=== PATIENT | male | born 1945 | race Caucasian/White ===

== ENCOUNTER 2022-02-26 09:09 | Outpatient (CLI) | payer MEDICARE, SELFPAY ==
--- NOTE | ~2022-02-26 | US_ITS ---
US abdomen complete EXAMINATION: US Abdomen Complete INDICATION: History of malignant neoplasm. PROCEDURE: Realtime High Resolution abdomen ultrasound. COMPARISON: No prior studies for comparison FINDINGS: There is a 4 mm gallbladder polyp. No gallstones, gallbladder wall thickening or pericholec ystic fluid. Common bile duct measures 4 mm. Liver echotexture within normal limits without focal mass. Pancreas within normal limits. Pancreati c tail is obscured by bowel gas. Spleen is unremarkeable. There are bilateral renal cysts, largest i n the left kidney measuring 6 cm. There is a right renal stone measuring 7 mm. No significant hydrone phrosis. Right kidney measures 10.5 cm. Left kidney measures 12 cm. Visualized aspects of the aorta and IVC are within normal limits. Portal vein is patent. No sonograph ic Luo's sign indicated by the technologist. IMPRESSION: 1: Gallbladder polyp measuring 4 mm. 2: Right nephrolithiasis measuring 7 mm. 3: Bilateral renal cysts. Reviewed, dictated and finalized at location A.
== END 2022-02-26 09:10 | disposition home or self-care (01) ==
PROVIDERS: PCP Family Medicine; Visit Provider Family Medicine
DX: R63.4 Abnormal weight loss (principal); F17.201 Nicotine dependence, unspecified, in remission; K82.4 Cholesterolosis of gallbladder; N20.0 Calculus of kidney; N28.1 Cyst of kidney, acquired; Z80.0 Family history of malignant neoplasm of digestive organs
CPT/HCPCS: 76700

== ENCOUNTER 2022-12-24 07:41 | Outpatient (CLI) | payer MEDICARE, SELFPAY ==
--- NOTE | ~2022-12-24 | US_ITS ---
EXAMINATION: US carotid duplex BI DATE: 12/24/2022 09:55 INDICATION: Bilateral carotid bruits TECHNIQUE: Grayscale, color Doppler, and pulsed Doppler images of the cervical carotid arteries were obtained. The degree of vessel stenosis is placed in one of the following categories: normal, <50%, 5 0-69%, >=70% but less than near-occlusion, near-occlusion, or total occlusion. Note that percent sten osis relative to normal distal artery lumen diameter is indirectly measured from velocity measurement s as described by Troy, et al. Radiology 2003; 229:340-346. Notes: Normal: Peak systolic velocity <125 centimeters/sec and no plaque <50%. Peak systolic velocity <125 ( EDV <40; ICA/CCA PSV ratio <2.0; used these factors only a tandem lesions or low cardiac output or co ntralateral disease) 50-69 %: PSV 125-230 (EDV 40-100; ratio 2-4) >= 70% but less than near occlusion: PSV greater than 230 (EDV > 100; ratio> 4.0) Near Occlusion: PSV that is variable; markedly narrowed lumen Occlusion: Absent flow on color/spectral Doppler and no lumen on zimmer scale. COMPARISON: None. FINDINGS: RIGHT: The right common carotid artery (CCA) peak systolic velocity (PSV) is 76 cm/s. The right internal car otid artery (ICA) PSV is 73 cm/s. The right ICA end-diastolic velocity (EDV) is 21 cm/s. The right IC A/CCA PSV ratio is 1.0. The external carotid artery (ECA) PSV is 71 cm/s. There is antegrade flow in the right vertebral artery. LEFT: The left CCA PSV is 83 cm/s. The left ICA PSV is 61 cm/s. The left ICA EDV is 19 cm/s. The left ICA/C CA PSV ratio is 0.7. The ECA PSV is 75 cm/s. There is antegrade flow in the left vertebral artery. IMPRESSION: 1. Less than 50% stenosis in the right internal carotid artery by sonographic criteria. 2. Less than 50% stenosis in the left internal carotid artery by sonographic criteria. Reviewed, dictated and finalized at location A. IMPRESSION: 1. Less than 50% stenosis in the right internal carotid artery by sonographic gracie luevano. 2. Less than 50% stenosis in the left internal carotid artery by sonographic lam camarena.
--- NOTE | 2022-12-24 07:49 | ECHO_ITS ---
Patient Info Name: Richard Christensen Age: 77 years : 1945 Gender: Male Ht: 70 in Wt: 150 lbs BSA: 1.83 m2 HR: 56 bpm BP: 171 / 72 mmHg Heart Rhythm: Sinus Rhythm Technical Quality: Fair Exam Date: 12/24/2022 7:55 AM Exam Location: [facility] Patient Status: Outpatient Admit Date: 12/24/2022 Staff Ordering Physician: Alessandra Barron MD Blending Tank Tender: Trang Graham RDCS Attending Provider: Alessandra Barron MD Referring Physician: Anderson PIERCE; Exam Type: CA echo doppler color flow Study Info Indications R01.1 - Cardiac murmur, unspecified Complete two-dimensional, color flow and Doppler transthoracic echocardiogram is performed. Summary 1. Complete two-dimensional, color flow and Doppler transthoracic echocardiogram is performed. 2. Left ventricular chamber dimension is normal. 3. Ventricular septum is sigmoid shaped. No LVOT obstruction. 4. Left ventricular systolic function is normal, estimated at 65-70%. 5. The left ventricular diastolic function is grade I diastolic dysfunction. 6. E/e' 9 is minimally elevated. 7. There is severe aortic valve sclerosis. 8. There is mild aortic valve stenosis with a peak velocity of 252 cm/s, mean gradient of 14 mmHg, and aortic valve area of 1.6 cm2. 9. The mitral valve has mildly calcified annulus. 10. There is trace tricuspid valve regurgitation. Left Ventricle E/e' 9 is minimally elevated. Ventricular septum is sigmoid shaped. No LVOT obstruction. Left ventricular chamber dimension is normal. Left ventricular systolic function is normal, estimated at 65-70%. The left ventricular diastolic function is grade I diastolic dysfunction. Right Ventricle Right ventricular systolic function is normal and with normal TAPSE 2.7 cm. Right ventricular chamber dimension is normal. Left Atria Left atrial chamber dimension is normal. Right Atria Right atrial chamber dimension is normal. Aortic Valve The aortic valve is trileaflet. There is severe aortic valve sclerosis. There is mild aortic valve stenosis with a peak velocity of 252 cm/s, mean gradient of 14 mmHg, and aortic valve area of 1.6 cm2. There is no aortic valve regurgitation. Pulmonic Valve There is no pulmonic regurgitation. Mitral Valve The mitral valve has mildly calcified annulus. There is no mitral valve stenosis. There is no mitral valve regurgitation. Tricuspid Valve RVSP is not calculated due to an inadequate TR jet. There is trace tricuspid valve regurgitation. Pericardium/Pleural There is no pericardial effusion. Inferior Vena Cava Normal inferior vena cava with >50% collapse upon inspiration consistent with normal right atrial pressure, 5 mmHg. Aorta The aortic root size at the sinus of Valsalva is normal. Left Ventricular Outflow Tract Name Value Normal LVOT 2D LVOT Diameter 2.3 cm LVOT Doppler LVOT Peak Gradient 4 mmHg LVOT Mean Gradient 2 mmHg LVOT VTI 22 cm LVOT VTI/AV VTI Ratio 0.4 LVOT Stroke Volume 93 ml LVOT CO 4.7 l/min LVOT CI 2.6 l/min/m2
== END 2022-12-24 07:42 | disposition home or self-care (01) ==
PROVIDERS: PCP Family Medicine; Visit Provider Family Medicine
DX: R01.1 Cardiac murmur, unspecified (principal); R09.89 Other specified symptoms and signs involving the circulatory and respiratory systems; I65.23 Occlusion and stenosis of bilateral carotid arteries
CPT/HCPCS: 93306; 93880

== ENCOUNTER 2023-11-24 08:10 | Inpatient (IN) | payer MEDICARE, SELFPAY ==
[2023-11-24] VITALS (9 sets, daily range): BP systolic 140–191; BP diastolic 69–78; PULSE 46–61; RESP 16–20; TEMP 36.7–37; O2SAT 99–100
--- NOTE | ~2023-11-24 | XR_ITS ---
EXAMINATION: XR fluoroscopy no charge DATE: 11/26/2023 12:24 INDICATION: L4-L5 laminectomy and discectomy TECHNIQUE: 2 fluoroscopic images of the lower lumbar spine were obtained during procedure performed b carissa Larkin. Radiologist was not present for the imaging or procedure. The amount of fluoroscopy ti me used during this procedure was 0.1 minutes. COMPARISON: None. FINDINGS: Again seen is mild grade 1 anterolisthesis L4 on L5. Tip of metallic surgical instrument projects ove r the posterior superior margin of the L5 vertebral body. Lucency and lap sponge markers project over the soft tissues posterior to L4-L5. IMPRESSION: 1. Fluoroscopy utilized during neurosurgical procedure at the lower lumbar spine. See procedure note for further detail. Reviewed, dictated and finalized at location A. IMPRESSION: 1. Fluoroscopy utilized during neurosurgical procedure at the lower lumbar spin e. See procedure note for further detail.
--- NOTE | ~2023-11-24 | CT_ITS ---
EXAMINATION: CT lumbar spine wo con DATE: 11/24/2023 10:23 INDICATION: Low back pain. Right hip pain. Fall. TECHNIQUE: Computed tomography (CT) of the lumbar spine was performed without intravenous contrast. A utomated exposure control and iterative reconstruction technique were employed. The dose-length produ ct was 448.97 mGy-cm. COMPARISON: None FINDINGS: There are a few stones in right kidney measuring up to at least 8 mm. There is a 3 mm stone in left kidney. There is 3 mm anterolisthesis of L4 on L5. There is mild chronic anterior wedging of T11 and T12 vertebral bodies. There is a compression fracture of L5 with 2/5 loss of height. The fol lowing disc levels are specifically discussed: L1-L2: The disc is bulging. There is severe right and moderate left facet joint osteoarthritis. There is mild bilateral neural foraminal stenosis. There is mild central canal stenosis. L2-L3: The disc is bulging. There is moderate right and severe left facet joint osteoarthritis. There is moderate bilateral neural foraminal stenosis. There is mild central canal stenosis. L3-L4: The disc is bulging. There is severe bilateral facet joint osteoarthritis. There is moderate b ilateral neural foraminal stenosis. There is mild central canal stenosis. L4-L5: The disc is bulging with superimposed large central extrusion. There is severe bilateral facet joint osteoarthritis. There is moderate bilateral neural foraminal stenosis. There is severe central canal stenosis. L5-S1: The disc is bulging. There is severe bilateral facet joint osteoarthritis. There is moderate b ilateral neural foraminal stenosis. There is mild central canal stenosis. IMPRESSION: 1. L5 compression fracture. 2. Severe lumbar spondylosis. Reviewed, dictated and finalized at location A.
--- NOTE | ~2023-11-24 | XR_ITS ---
EXAMINATION: XR knee RT 3V DATE: 11/24/2023 10:42 INDICATION: Right leg pain. Fall. TECHNIQUE: 3 views of right knee were obtained. COMPARISON: None. FINDINGS: Bone alignment is normal. No fracture. There is mild tricompartmental osteoarthritis. No kn ee joint effusion. IMPRESSION: 1. Mild right knee osteoarthritis. Reviewed, dictated and finalized at location A.
--- NOTE | ~2023-11-24 | XR_ITS ---
EXAMINATION: XR hip RT 2V w AP pelvis DATE: 11/24/2023 10:42 INDICATION: Right leg pain. Fall. Inability to bear weight. TECHNIQUE: An anteroposterior view of the pelvis and 2 views of right hip were obtained. COMPARISON: Pelvis CT 11/24/2023 FINDINGS: Bone alignment is normal. No fracture. There is mild osteoarthritis of the hips. There is a nkylosis of right sacroiliac joint and severe osteoarthritis of left sacroiliac joint. IMPRESSION: 1. Polyarticular osteoarthritis. Reviewed, dictated and finalized at location A.
--- NOTE | ~2023-11-24 | XR_ITS ---
EXAMINATION: XR chest 2V DATE: 11/24/2023 08:40 INDICATION: Weakness. TECHNIQUE: Frontal and lateral views of the chest were obtained on 3 radiographs. COMPARISON: None. FINDINGS: There is no pneumonia, pleural effusion, or pneumothorax. The heart size is normal. IMPRESSION: 1. No acute pulmonary disease. Reviewed, dictated and finalized at location A.
--- NOTE | ~2023-11-24 | CT_ITS ---
EXAMINATION: CT pelvis wo con DATE: 11/24/2023 10:26 INDICATION: Right hip pain post fall TECHNIQUE: High resolution computed tomography (CT) of the pelvis was performed without intravenous c ontrast. Additional sagittal and coronal reconstructions were performed. Automated exposure control a nd iterative reconstruction technique were employed. The dose-length product was 217.02 mGy-cm. COMPARISON: None FINDINGS: Bone alignment is normal. No fracture in pelvis or proximal femurs. There appears be an a relatively recent superior endplate compression fracture at L5 with 40% central vertebral body height loss. Poly articular osteoarthritis, severe at the bilateral L3 L4-L5 S1 facet joints, mild at the right and mod erate at the left sacroiliac joint and mild at the bilateral hip joints. There are enthesophytes at t he bilateral greater tuberosities. There is some fatty atrophy of the bilateral gluteus minimus and a nterior right gluteus medius tendons which can be seen in the setting of chronic tears of the associa l[place] tendons. Peripherally calcified heterotopic ossicle in the anterior right hemipelvis. Bladder is normal. Prostatomegaly measuring 5.0 x 3.5 cm. Visualized portion of the bowels including the appendix are normal. There is moderate amount of stool in the distal colon with 6.7 x 6.2 cm ball of stool at the rectum. Bilateral nephrolithiasis with 3 mm stone at the lower pole the left kidney and at least 12 mm partially visualized stone at the lower pole of the right kidney. There are also c ysts at the lower poles of both kidneys, partially visualized measuring at least 4.9 cm on the left a nd 1.5 cm on the right. No free fluid in the pelvis. No pathologically enlarged pelvic or inguinal ly mphadenopathy. IMPRESSION: 1. Recent-appearing L5 superior endplate compression fracture with 40% central vertebral body height loss. 2. No acute osseous abnormality in the pelvis and proximal femurs. 3. Polyarticular osteoarthritis, severe at the lower lumbar facet joints, moderate at the left sacral iliac joint and mild at the right sacroiliac and bilateral hip joints. 4. Prostatomegaly. 5. Bilateral nephrolithiasis. Reviewed, dictated and finalized at location A. IMPRESSION: 1. Recent-appearing L5 superior endplate compression fracture with 40% central vertebral body height loss. 2. No acute osseous abnormality in the pelvis and proximal femurs. 3. Polyarticular osteoarthritis, severe at the lower lumbar facet joints, moder ate at the left sacral iliac joint and mild at the right sacroiliac and bilater al hip joints. 4. Prostatomegaly. 5. Bilateral nephrolithiasis.
--- NOTE | ~2023-11-24 | MR_ITS ---
EXAMINATION: MR lumbar spine wo con DATE: 11/24/2023 14:58 INDICATION: Right-sided lumbar radiculopathy. TECHNIQUE: Magnetic resonance imaging (MRI) of the lumbar spine was performed without intravenous con trast. Sequences included sagittal T2-weighted FSE, sagittal T2-weighted FS FSE, sagittal T1-weighted FSE, and axial T2-weighted FSE. COMPARISON: CT lumbar spine 11/24/2023 FINDINGS: There is 3 mm anterolisthesis of L4 on L5. There is a compression fracture of L5 with 1/5 l oss of height and edema-like marrow signal intensity. There is mild chronic anterior wedging of T12 v ertebral body. Disc heights are normal. The distal spinal cord signal intensity is normal. The conus medullaris is at T12. Partially visualized are cysts in the kidneys measuring up to 4.9 cm on the lef t. The following disc levels are specifically discussed: L1-L2: The disc is bulging. There is severe bilateral facet joint osteoarthritis. There is mild bilat eral neural foraminal stenosis. There is no central canal stenosis. L2-L3: The disc is bulging. There is severe bilateral facet joint osteoarthritis. There is mild bilat eral neural foraminal stenosis. There is no central canal stenosis. L3-L4: The disc is bulging and has an annular fissure. There is severe bilateral facet joint osteoart hritis. There is hypertrophy of the ligamentum flavum. There is moderate bilateral neural foraminal s tenosis. There is mild central canal stenosis. L4-L5: The disc is bulging with superimposed large left central extrusion. There is severe bilateral facet joint osteoarthritis. There is hypertrophy of the ligamentum flavum. There is moderate bilatera l neural foraminal stenosis. There is severe central canal stenosis. L5-S1: The disc is bulging. There is severe bilateral facet joint osteoarthritis. There is moderate b ilateral neural foraminal stenosis. There is mild central canal stenosis. IMPRESSION: 1. Acute/subacute L5 compression fracture. 2. Severe lower lumbar spondylosis. Reviewed, dictated and finalized at location A.
--- NOTE | 2023-11-24 08:12 | ECG_ITS ---
SEE SCANNED COPY FOR CONFIRMED REPORT MTDD
[2023-11-24 08:33] LABS: Basophils Percent Auto 0.5 % (0.2-1.2); Eosinophils Percent Auto 0.5 % (0-4.4); Hematocrit 37.6 % (42.0-52.0); Hemoglobin 11.8 g/dL (14.0-18.0); Immature Granulocyte Absolute 0.01 K/mm3 (0.00-0.031); Immature Granulocyte Percent A 0.2 % (0-0.5); Lymphocytes Absolute Auto 0.85 K/mm3 (0.9-3.2); Lymphocytes Percent Auto 13.5 % (18.3-44.2); Mean Corpuscular HGB Conc 31.4 g/dl (32-36); Mean Corpuscular Hemoglobin 26.5 pg (26-34); Mean Corpuscular Volume 84.3 fl (80-100); Mean Platelet Volume 9.3 fl (7.4-10.4); Monocytes Absolute Auto 0.3 K/mm3 (0.1-0.6); Monocytes Percent Auto 4.1 % (2.6-8.5); Neutrophils Absolute Auto 5.1 K/mm3 (1.3-6.7); Neutrophils Percent Auto 81.2 % (45.5-73.1); Platelet Count Result 264 k/mm3 (150-375); Red Blood Count 4.46 M/mm3 (4.6-6.20); Red Cell Distribution Width 16.4 % (11.5-14.5); White Blood Count 6.3 K/mm3 (4.5-10.0)
[2023-11-24 08:51] LABS: Alanine Aminotransferase 23 U/L (6-50); Albumin Level 4.1 g/dL (3.5-5.1); Alkaline Phosphatase 54 U/L (38-126); Anion Gap 5 mmol/L (4-12); Aspartate Amino Transferase 37 U/L (17-59); Bilirubin,Total 0.5 mg/dL (0.2-1.3); Blood Urea Nitrogen 15 mg/dL (9-20); Calcium 9.2 mg/dL (8.4-10.2); Carbon Dioxide 28 mmol/L (22-30); Chloride 109 mmol/L (98-107); Estimated CRCL calculation 66 ml/min; Estimated Glomerular Filt Rate > 60; Glucose 103 mg/dL (65-110); Potassium 3.7 mmol/L (3.4-5.0); Sodium 142 mmol/L (137-145)
--- NOTE | 2023-11-24 10:01 | ED.GENADULT ---
HPI - General Adult General Chief complaint: Weakness <ODALYS Meng Last Filed: 11/28/23 09:26> Stated complaint: BLE weakaness, falls <ODALYS Meng Last Filed: 11/28/23 09:26> Time Seen by Provider: 11/24/23 08:55 <ODALYS Meng Last Filed: 11/28/23 09:26> Source: patient <ODALYS Meng Last Filed: 11/28/23 09:26> Mode of arrival: ambulatory <ODALYS Meng Last Filed: 11/28/23 09:26> Limitations: no limitations <ODALYS Meng Last Filed: 11/28/23 09:26> History of Present Illness HPI narrative: This is a 78-year-old male with PMH of HLD, HTN, tremor who presents to the ED with chief complaint of lower extremity pain and weakness for the past couple weeks. Reports he had a fall yesterday and felt like his right knee buckled. He reports hurting the right knee, right hip and lower back. He reports he has been dealing with lower back pain past several weeks and feels like it is radiating pains for low back all the way down to his foot. He states sometimes it feels like he has a footdrop on the right. He reports occasionally feels like his left leg is weak the but not a pain like the right. His is bedside concern for general weight loss over the past year. Denies any history of cancer. States he has not been feeling ill recently. Denies chest pain, shortness of breath, syncope, head injury, nausea, vomiting, fevers, chills. Denies any numbness to the foot. <ODALYS Meng Last Filed: 11/28/23 09:26> Related Data Home medications: Home Medications Medication Instructions Recorded Confirmed aspirin 325 mg tablet 325 mg PO HS 11/24/23 11/24/23 PreserVision AREDS-2 2 cap PO BID macular degeneration 11/27/23 11/27/23 <ODALYS Meng Last Filed: 11/28/23 09:26> Allergies/adverse reactions: Allergies Allergy/AdvReac Type Severity Reaction Status Date / Time No Known Drug Allergies Allergy Verified 11/24/23 11:11 <Modesto Olvera PA-C - Last Filed: 11/28/23 09:26> Review of Systems Review of Systems: All systems as dictated in HPI <Modesto Olvera PA-C - Last Filed: 11/28/23 09:26> [facility] Past Medical History Medical History: Medical History 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 Mild aortic stenosis Prediabetes Tremor <Modesto Olvera PA-C - Last Filed: 11/28/23 09:26> Surgical History Surgical History: Surgical History History of colonoscopy Internal hemorrhoids <Modesto Olvera PA-C - Last Filed: 11/28/23 09:26> Family History Family History: Family History Mother Hypertension Family history of Alzheimer's disease Father Family history of kidney disease, Onset Age: 86 Family history of Alzheimer's disease, Onset Age: 86 <Modesto Olvera PA-C - Last Filed: 11/28/23 09:26> Social History Social History: Social History Social History: Surrogate medical decision maker: Angy Christensen, spouse. Code status: Full code. Smoking status: Former smoker Tobacco type: pipe Second hand tobacco smoke exposure: No Alcohol intake: never Substance use: never Substance use type: does not use Do You Feel Safe in your Home?: Yes Lack of Transportation: No Lack of Food: Never True Current Housing: I Have Housing Concerned About Future Housing: No Difficulty Paying Gas/Electric Bills: No Difficulty Paying for Meds: No Currently Unemployed: No Education: Associate Degree Difficulty w/ Childcare or Fami
[2023-11-24 10:49] LABS: Appearance Urine Clear (Clear); Bacteria Urine None Seen /hpf; Bilirubin Urine Negative (Negative); Blood Urine Negative (Negative); Color Urine Yellow (Yellow); Glucose Urine UA Negative (Negative); Ketones Urine 1+ mg/dL (Negative); Leukocyte Esterase Ur Negative LEU/UL (Negative); Nitrate Urine Negative (Negative); Non Pathogenic Casts 0-2; Protein Urine 1+ mg/dL (Negative); Specific Grav Ur 1.013 (1.001-1.035); Squamous Epithelial Cell Urine None Seen /hpf (Few); WBC Urine 0-5 /hpf (0-3); pH Urine 7.5 (5.0-9.0)
[2023-11-24] MEDS: ACETAMINOPHEN 500 MG TABLET 1000 MG PO (10:50)
[2023-11-24 10:53] LABS: CRP < 0.5 mg/dL (<1.0)
[2023-11-24 10:54] LABS: Amorphous Sediment Urine Few
[2023-11-24 10:55] LABS: Add Urine Microscopic? YES
[2023-11-24] MEDS: ORPHENADRINE CITRATE 100 MG TABLET.ER PO (11:21)
[2023-11-24] MEDS: dexAMETHasone SOD PHOS INJ 10 MG/ML 1 ML VIAL 6 MG IV PUSH (11:22)
--- NOTE | 2023-11-24 12:17 | ADMGEN ---
This patient, Richard Christensen, was admitted to [facility] Surg Room 330-01. Patient/family oriented to hospital policies and general routines including ID bracelet, bed and alarms, visiting hours, pain management, procedures, bathroom and other care routines, personal items, smoking policy, room service/diet, and visiting hours. Information on how to activate the Rapid Response Team has been discussed. Patient/Family are encouraged to report perceived risks to care and to ask questions if they do not understand what they are told or what they should do.
--- NOTE | 2023-11-24 15:53 | PM.IMHP ---
H&P: HPI History of Present Illness Date/Time: 11/24/23 15:30 Chief Complaint: Weakness and falls. Narrative: This is a 78-year-old male with hypertension, aortic valve stenosis, and diastolic dysfunction grade 1 who presented to the emergency department for evaluation of weakness and falls. The patient provides the following history. He gives a several week history of low back pain with pain radiating down the right leg into the foot in addition to increasing weakness in both legs, right greater than left. Yesterday he fell due to his right knee buckling and he reports pain in his right knee, right hip, and worsening lower back pain since that time. At times he feels as though his right foot is dropping and he has difficulties pulling it up. voices concern for generalized weight loss over the past 1 year. He denies fever, chills, sweats chest pain, pleuritic pain, nausea, vomiting, diarrhea, dysuria, urinary retention, bowel incontinence, saddle anesthesia, and numbness. In the ED: He was afebrile on arrival. He is bradycardic in the upper 40s to low 60s which seems to be his baseline. Blood pressures are stable. Imaging showed a recent appearing L5 superior endplate compression fracture with 40% central vertebral body height loss. Labs were pretty unremarkable with the only outlier being a hemoglobin 11.8. Review of Systems Review of Systems: 12 systems were reviewed and are negative except for as per HPI. 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 Mild aortic stenosis Prediabetes Tremor Surgical History Surgical History History of colonoscopy Internal hemorrhoids Family History Family History Mother Hypertension Family history of Alzheimer's disease Father Family history of kidney disease, Onset Age: 86 Family history of Alzheimer's disease, Onset Age: 86 Social History Social History (Updated 11/25/23 @ 01:14 by Taira Rodriguez PA-C) Social History: Surrogate medical decision maker: Angy Christensen, spouse. Code status: Full code. Smoking status: Former smoker Tobacco type: pipe Second hand tobacco smoke exposure: No Alcohol intake: never Substance use: never Substance use type: does not use Do You Feel Safe in your Home?: Yes Lack of Transportation: No Lack of Food: Never True Current Housing: I Have Housing Concerned About Future Housing: No Difficulty Paying Gas/Electric Bills: No Difficulty Paying for Meds: No Currently Unemployed: No Education: Associate Degree Difficulty w/ Childcare or Family Care: No Living arrangements: with family Additional living arrangements comments: Lives with . Occupation/Education: retired Spiritual care concerns: No Agree to blood products: Yes Meds Home Medications and Allergies Home Medications Medication Instructions Recorded Confirmed Type hydrochlorothiazide 25 mg tablet 25 mg .Route .COMPLEX #90 tabs 04/04/22 11/24/23 Rx amlodipine 2.5 mg tablet 2.5 mg PO DAILY #90 tabs 03/15/23 11/24/23 Rx lisinopril 20 mg tablet 20 mg PO DAILY #90 tabs 07/06/23 11/24/23 Rx aspirin 325 mg tablet 325 mg PO HS 11/24/23 11/24/23 History Allergies Allergy/AdvReac Type Severity Reaction Status Date / Time No Known Drug Allergies Allergy Verified 11/24/23 11:11 Vital Signs Vital Signs - 24 hr 11/24/23 08:13 11/24/23 08:19 11/24/23 08:21 Temperature 98.6 F Pulse Rate 61 57 L Respiratory Rate 16 Blood Pressure 191/78 H Pulse Oximetry 100 100 Oxygen Deliver
[2023-11-24] MEDS: ASPIRIN 325 MG TABLET PO (21:11)
[2023-11-25] MEDS: MELATONIN 5 MG TABLET PO (00:49)
[2023-11-25] MEDS: ACETAMINOPHEN 325 MG TABLET 650 MG PO (00:49)
[2023-11-25 05:57] VITALS: BP 153/62; PULSE 55; RESP 18; TEMP 36.7; O2SAT 100
[2023-11-25 06:53] LABS: Hemoglobin 11.7 g/dL (14.0-18.0); Mean Corpuscular Hemoglobin 25.6 pg (26-34); Mean Corpuscular Volume 85.3 fl (80-100); Mean Platelet Volume 10.2 fl (7.4-10.4); Platelet Count Result 305 k/mm3 (150-375); Red Blood Count 4.57 M/mm3 (4.6-6.20); Red Cell Distribution Width 16.2 % (11.5-14.5); White Blood Count 7.9 K/mm3 (4.5-10.0)
[2023-11-25 07:07] LABS: Anion Gap 5 mmol/L (4-12); Blood Urea Nitrogen 21 mg/dL (9-20); Calcium 9.4 mg/dL (8.4-10.2); Carbon Dioxide 28 mmol/L (22-30); Chloride 109 mmol/L (98-107); Estimated CRCL calculation 66 ml/min; Estimated Glomerular Filt Rate > 60; Glucose 88 mg/dL (65-110); Magnesium 2.3 mg/dL (1.6-2.3); Potassium 4.1 mmol/L (3.4-5.0); Sodium 142 mmol/L (137-145)
[2023-11-25] MEDS: amLODIPine BESYLATE 2.5 MG TABLET PO (08:08)
[2023-11-25] MEDS: hydroCHLOROthiazide 25 MG TABLET PO (08:08)
[2023-11-25] MEDS: lisinopriL 20 MG TABLET PO (08:08)
[2023-11-25 08:11] VITALS: PULSE 51
--- NOTE | 2023-11-25 09:59 | PM.IMPN ---
Progress Note: A&P Assessment and Plan (1) Closed compression fracture of L5 vertebra: Code(s): S32.050A - Wedge compression fracture of fifth lumbar vertebra, initial encounter for closed fracture Status: Acute Assessment and Plan: 11/25/23: Lumbar spine MRI showing acute/subacute L5 compression fracture, severe lower lumbar spondylosis Lumbar spine CT showing L5 compression fracture, severe lumbar spondylosis Pelvic CT showing recent appearing L5 superior endplate compression fracture with 40% central vertebral body height loss, poly articular osteoarthritis severe at the lower lumbar facet joints, moderate at the left sacroiliac joint and mild at the right sacroiliac joint and bilateral hip joints Neurosurgery was consulted Patient was started on dexamethasone Continue Buckner and Dilaudid for pain control Will add Lyrica 50 mg t.i.d. Flexeril for muscle spasms Lidocaine patch ordered (2) Generalized weakness: Code(s): R53.1 - Weakness Status: Acute Assessment and Plan: 11/25/23: Patient started in with a several week history of lower back pain with radiating pain down the right leg into the foot with increasing weakness in both legs right greater than the left after sustaining fall on 11/23/2023. PT and OT ordered to eval and treat tomorrow as we are working pain control today (3) Bradycardia: Code(s): R00.1 - Bradycardia, unspecified Status: Acute Assessment and Plan: 11/25/23: HR in the 40's-50's continue cardiac monitoring Echo shown normal severe aortic valve sclerosis with mild stenosis, grade 1 diastolic dysfunction, RV systolic function normal Murmur noted on exam today (4) Essential hypertension: Code(s): I10 - Essential (primary) hypertension Status: Acute Assessment and Plan: 11/25/23: Blood pressures ranging blood pressures ranging 140/75 to 163/74 Continue lisinopril, amlodipine and hydrochlorothiazide Time Spent With Patient Time with patient: 25 - 35 minutes Subjective Date/time seen: 11/25/23 09:59 Interval history: This is a 78-year-old male presented to the hospital on 11/24/2023 with weakness and history of falls. Patient has history of low back pain with pain radiating down the right leg into the foot and increasing weakness in both legs right greater than the left. He fell on 11/23/2023 due to his right knee buckling and he reported right knee, right hip, and worsening lower back pain since that time. Workup in the hospital included a chest x-ray which was negative. Pelvis CT which shown recent appearing L5 superior endplate compression fracture with 40% central vertebral body height loss, polyarticular osteoarthritis which is severe at the lower lumbar facet joints, moderate osteoarthritis at the left sacral iliac joint and mild at the right sacroiliac joint and bilateral hip joints, prostatomegaly, bilateral nephrolithiasis. Lumbar spine showing L5 compression fracture, severe lumbar spondylosis. Right knee x-ray shows mild right knee osteoarthritis, no fracture or malalignment. The hip and pelvis x-ray shows polyarticular osteoarthritis. Lumbar spine MRI shows acute/subacute L5 compression fracture, severe lower lumbar spondylosis, he has bulge disc and L1-L2, L2-L3, L3-L4, L4-L5, and L5-S1. Initial labs revealed a hemoglobin of 11.8, otherwise unremarkable. UA was obtained and showed 1+ urine protein, 1+ urine ketones, 6-10 urine RBC, otherwise unremarkable. Echocardiogram showed normal LV systolic function with an estimated EF of 65-70%, grade 1 diastolic dysfunction. Patient was started on dexamethasone, given a dose of Norflex, and hydrochlorothiazide while in the ED. On examination today patient 3, lying bed. is at the bedside. Patient denies any fever, chills, nausea, vomiting, diarrhea, abdominal pain, chest pain, shortness a breath. Patient endorses pain 10/10 which radiates down his leg to his foot with paresthe
[2023-11-25] MEDS: dexAMETHasone 2 MG TABLET 6 MG PO (11:33)
[2023-11-25 11:46] VITALS: BMI 21.4
--- NOTE | 2023-11-25 12:25 | PCPTNOTE ---
Per hospitalist note, PT and OT ordered to eval and treat tomorrow as we are working pain control today. Will follow
[2023-11-25 14:00] VITALS: BP 162/70; PULSE 51; RESP 18; TEMP 37.3; O2SAT 100
--- NOTE | 2023-11-25 14:19 | PC.NURSE ---
patient has refused pain meds, stated ankle hurts some, but doesn't want to take anything at this point.
--- NOTE | 2023-11-25 14:20 | PC.NURSE ---
okay per Dr Cole that patient gets up with LSO brace and therapy. no need for bedrest. Dr Larkin will be by to see the patient this evening.
[2023-11-25] MEDS: PREGABALIN (*CRX) 50 MG CAPSULE PO (16:22)
[2023-11-25] MEDS: CYCLOBENZAPRINE HCL 5 MG TABLET PO ×2 (16:22→20:25)
--- NOTE | 2023-11-25 17:59 | WPDNEUROSGCN ---
Assessment and Plan Assessment and plan (1) Lumbar radiculopathy: Code(s): M54.16 - Radiculopathy, lumbar region Status: Acute (2) Closed compression fracture of L5 vertebra: Code(s): S32.050A - Wedge compression fracture of fifth lumbar vertebra, initial encounter for closed fracture Status: Acute (3) Lumbar stenosis with neurogenic claudication: Code(s): M48.062 - Spinal stenosis, lumbar region with neurogenic claudication Status: Acute Plan Mr. Christensen is a 78-year-old male with history of hypertension who presents with 1 month of claudicatory pain in the legs and two days of severe, acute right>left radicular leg pain and inability to walk. He does have foot drop on the right side in particular with decreased sensation to light touch in the right leg. His MRI shows a large cranially-migrated disc herniation at L4-5 causing severe stenosis as well as degenerative stenosis at L4-5 from ligamentum flavum hypertrophy. I discussed two options: the first would be medical management with steroids, pain medication, and physical therapy. The second option would be surgery in the form of L4-5 laminectomy and microdiskectomy. We discussed surgery in detail including risks, expected recovery, and restrictions after surgery. He and his would like to think about these options and speak with their daughters who are nurses. They will notify me when they decide how to proceed. I will make him NPO after midnight in the event they wish to proceed with surgery which I will try to add on tomorrow. Consult date: 11/25/23 HPI: Richard Christensen . is a 78 year old male with history of HTN who was admitted yesterday for significant right leg pain after a fall two days ago. He reports that, for the last month, he has been less mobile due to a sense of fatigue in the legs. On Thursday, he fell and developed severe right leg pain involving the entire right leg. He has pain in the left leg to a lesser degree. He has been unable to walk as his right leg cannot support him. He has some paresthesias in the legs. He denies bowel/bladder changes. His pain is not any better since admission, and he has not been able to get out of bed for this reason. He notably takes aspirin for prevention purposes. He is otherwise fairly healthy. 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 Mild aortic stenosis Prediabetes Tremor Surgical History Surgical History History of colonoscopy Internal hemorrhoids Family History Family History Mother Hypertension Family history of Alzheimer's disease Father Family history of kidney disease, Onset Age: 86 Family history of Alzheimer's disease, Onset Age: 86 Social History Social History (Updated 11/25/23 @ 01:14 by Tiara Rodriguez PA-C) Social History: Surrogate medical decision maker: Angy Christensen, spouse. Code status: Full code. Smoking status: Former smoker Tobacco type: pipe Second hand tobacco smoke exposure: No Alcohol intake: never Substance use: never Substance use type: does not use Do You Feel Safe in your Home?: Yes Lack of Transportation: No Lack of Food: Never True Current Housing: I Have Housing Concerned About Future Housing: No Difficulty Paying Gas/Electric Bills: No Difficulty Paying for Meds: No Currently Unemployed: No Education: Associate Degree Difficulty w/ Childcare or Family Care:
--- NOTE | 2023-11-25 18:42 | PC.NURSE ---
family very unsure of surgery option. They are going to call Dr Linda PCP to see if she thinks that surgery would be a good choice. If not they will chose option #1 therapy, pain meds, and steroids. They will let night RN know what their decision is.
[2023-11-25 20:00] VITALS: O2SAT 100
[2023-11-25] MEDS: HYDROcodone/acetaminophen (*CRX) 5-325 MG TABLET PO (20:26)
[2023-11-25 21:13] VITALS: BP 152/71; PULSE 62; RESP 18; TEMP 36.8; O2SAT 100
[2023-11-26] VITALS (12 sets, daily range): BP systolic 108–180; BP diastolic 50–82; PULSE 51–62; RESP 14–18; TEMP 36.1–36.8; O2SAT 97–100
[2023-11-26 08:32] LABS: Prothrombin Time 13.6 Seconds (11.1-14.7)
[2023-11-26 08:35] LABS: Partial Thromboplastin Time 36.1 Seconds (22.3-36.8)
--- NOTE | 2023-11-26 08:45 | WPDANESEPPF ---
Anes - Initial Pre Proc Eval Procedure: Operation Date: 11/26/23 09:30 Proposed Procedures p L4-L5 Laminectomy and Discectomy - Princess Larkin MD Date/Time: 11/26/23 08:45 Surgeon: Ed Monson MD Pre Op Diagnosis: Verebral Compression Fracture/Right Leg Weakness Patient Data Age: 78 Gender: M Height: 1.78 m Weight: 69 kg Last Vital Signs Temp 36.6 C 11/26/23 05:45 Pulse 51 L 11/26/23 05:45 Resp 18 11/26/23 05:45 BP 160/82 H 11/26/23 05:45 Pulse Ox 100 11/26/23 05:45 O2 Del Method Room Air 11/25/23 20:00 Allergies Allergy/AdvReac Type Severity Reaction Status Date / Time No Known Drug Allergies Allergy Verified 11/24/23 11:11 Home Medications Medication Instructions Recorded Confirmed Type hydrochlorothiazide 25 mg tablet 25 mg .Route .COMPLEX #90 tabs 04/04/22 11/24/23 Rx amlodipine 2.5 mg tablet 2.5 mg PO DAILY #90 tabs 03/15/23 11/24/23 Rx lisinopril 20 mg tablet 20 mg PO DAILY #90 tabs 07/06/23 11/24/23 Rx aspirin 325 mg tablet 325 mg PO HS 11/24/23 11/24/23 History Laboratory Tests 11/26/23 07:38 PT 13.6 Seconds (11.1-14.7) INR 1.0 APTT 36.1 Seconds (22.3-36.8) Patient hx anesthesia problems: none Family hx anesthesia problems: none Results Review: All pre-operative results and documents have been reviewed as part of the pre-operative evaluation. 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 Mild aortic stenosis Prediabetes Tremor Surgical History Surgical History History of colonoscopy Internal hemorrhoids Family History Family History Mother Hypertension Family history of Alzheimer's disease Father Family history of kidney disease, Onset Age: 86 Family history of Alzheimer's disease, Onset Age: 86 Social History Social History Social History: Surrogate medical decision maker: Angy Christensen, spouse. Code status: Full code. Smoking status: Former smoker Tobacco type: pipe Second hand tobacco smoke exposure: No Alcohol intake: never Substance use: never Substance use type: does not use Do You Feel Safe in your Home?: Yes Lack of Transportation: No Lack of Food: Never True Current Housing: I Have Housing Concerned About Future Housing: No Difficulty Paying Gas/Electric Bills: No Difficulty Paying for Meds: No Currently Unemployed: No Education: Associate Degree Difficulty w/ Childcare or Family Care: No Living arrangements: with family Additional living arrangements comments: Lives with . Occupation/Education: retired Spiritual care concerns: No Agree to blood products: Yes Anes - Eval Final PreProcedure Day of Procedure 11/26/23 08:45 Patient weight: normal Heart: regular rate and rhythm Lungs: clear to auscultation Airway: Mallampati scale class II Neurological: alert and oriented Last oral intake: >/= 8 hours ASA classification: III Emergent: yes Anesthetic plan: proceed Anesthesia type and monitoring: general ETT and standard monitoring Results Review: All pre-operative results and documents have been reviewed as part of the pre-operative evaluation. Informed Consent: The patient's anesthetic plan and its attendant risks and benefits were discussed with the patient/family/POA. Questions were solicited and answers provided to the satisfaction of the patient/family/POA.
[2023-11-26] MEDS: LACTATED RINGERS 1,000 ML 30 ML IV CONT ×2 (09:00→12:03)
--- NOTE | 2023-11-26 09:19 | WPDHPUPDATE1 ---
History and Physical Update Update Date/Time: 11/26/23 09:19 History and Physical has been reviewed, including an updated exam of the patient. There are NO changes in the patient's condition. Risks, benefits, and alternatives have been discussed and questions answered. Patient agrees to proceed with procedure.
[2023-11-26] MEDS: ceFAZolin 2 GM/D5W 50 ML 2 GM/50 ML BAG IVPB (09:30)
--- NOTE | 2023-11-26 09:55 | PCOTNOTE ---
Attempted to see pt. for occupational therapy evaluation. Pt. is in surgery. Nursing aware. Following
[2023-11-26] MEDS: BUPIVACAINE/EPINEPHRINE 0.5% 30 ML VIAL INFILTRATE (10:10)
--- NOTE | 2023-11-26 10:11 | PCPTNOTE ---
Attempted to see pt. for occupational therapy evaluation. Pt. is in surgery. Will follow.
--- NOTE | 2023-11-26 11:51 | PM.OP ---
Procedure Note - Brief Procedure Note - Brief Date of procedure: 11/26/23 L4-5 disc herniation Severe lumbar stenosis Right foot drop Post-op diagnosis: Same Procedure performed: L4-5 laminectomy, diskectomy Surgeon: Princess Larkin MD Anesthesia: GETA Findings: Full laminectomy performed at L4-5. Large disc herniation removed from left side. Estimated blood loss (mL): 25 Urine output (mL): 200 Drains: No Packing: No Pathology: None sent Complications: None Condition: Stable Disposition: PACU
[2023-11-26] MEDS: PREGABALIN (*CRX) 50 MG CAPSULE PO ×2 (14:21→18:02)
--- NOTE | 2023-11-26 14:46 | PM.IMPN ---
Progress Note: A&P Assessment and Plan (1) Closed compression fracture of L5 vertebra: Code(s): S32.050A - Wedge compression fracture of fifth lumbar vertebra, initial encounter for closed fracture Status: Acute Assessment and Plan: Patient presents with back pain. Lumbar spine MRI showing acute/subacute L5 compression fracture, severe lower lumbar spondylosis. Lumbar spine CT showing L5 compression fracture, severe lumbar spondylosis. Pelvic CT showing recent appearing L5 superior endplate compression fracture with 40% central vertebral body height loss, poly articular osteoarthritis severe at the lower lumbar facet joints, moderate at the left sacroiliac joint and mild at the right sacroiliac joint and bilateral hip joints Patient was started on dexamethasone Neurosurgery was consulted and patient taken to OR today for L4-5 laminectomy, diskectomy Continue Lidocaine patch, Flexeril and Lyrica. Continue Muse and Dilaudid for pain control PT/OT (2) Generalized weakness: Code(s): R53.1 - Weakness Status: Acute Assessment and Plan: Patient started in with a several week history of lower back pain with radiating pain down the right leg into the foot with increasing weakness in both legs right greater than the left after sustaining fall on 11/23/2023. As above. PT/OT ordered. Check B12/folate (3) Bradycardia: Code(s): R00.1 - Bradycardia, unspecified Status: Acute Assessment and Plan: HR was in the 40's-50's. EKG showing sinus bradycardia (58), marked LAD and incomplete Rt BBB. Echo December 2022 showing normal LV systolic fxn with EF 65-70% and Grade I diastolic dysfunction and mild valvular disease. Monitor. Check TSH (4) Essential hypertension: Code(s): I10 - Essential (primary) hypertension Status: Acute Assessment and Plan: Patient's blood pressure was reviewed on 11/25 Blood pressure remains well controlled. Will hold meds for today and hold HCTZ and follow. Plan DVT prophylaxis - SCDs Code status - full Subjective Date/time seen: 11/26/23 14:46 Interval history: 78yo male with chronic LBP, gout, HTN and prediabetes here for weakness and history of falls. Assuming care. Chart reviewed. Patient is back surgery. No chest pain or shortness of breath. Denies any back pain. He is able to move the toes on his right foot which he had not been able to do before. Exam Narrative: AF 97.3 129/53 56 17 100% ra Gen - NARD Chest -lungs clear anteriorly and in the flanks. CV - RRR S1/S2 Abd - Soft, NT/ND, Positive BS Ext - No pedal edema. 2+ PT pulses bilaterally Neuro - Alert and appropriate. Able to wiggle toes both feet. Psych - Nml mood and affect. In good spirits. Skin - Warm and dry Objective Data Vital Signs Vital Signs: Vital Signs - 24 hr 11/25/23 21:13 11/25/23 20:00 11/26/23 05:45 Temperature 98.2 F 97.8 F Pulse Rate 62 51 L Respiratory Rate 18 18 Blood Pressure 152/71 H 160/82 H Pulse Oximetry 100 100 100 Oxygen Delivery Room Air Oxygen Flow Rate 11/26/23 08:20 11/26/23 08:00 11/26/23 12:03 Temperature 98.2 F 97.6 F Pulse Rate 52 L 57 L Respiratory Rate 16 15 Blood Pressure 180/71 H 113/50 L Pulse Oximetry 100 97 Oxygen Delivery Room Air Room Air Simple Face Mask Oxygen Flow Rate 8 11/26/23 12:15 11/26/23 12:30 11/26/23 12:45 Temperature Pulse Rate 56 L 61 60 Respiratory Rate 18 18 18 Blood Pressure 108/51 L 115/66 126/62 Pulse Oximetry 100 100 100 Oxygen Delivery Simple Face Mask Simple Face Mask Room Air Oxygen Flow Rate 8 8 11/26/23 12:58 11/26/23 13:15 11/26/23 13:30 Temperature 97.0 F L 97.6 F Pulse Rate 60 60 57 L Respiratory Rate 14 16 18 Blood Pressure 127/60 126/54 L 124/56 L Pulse Oximetry 99 100 100 Oxygen Delivery Room Air Oxygen Flow Rate 11/26/23 14:00 Temperature 97.3 F L Pulse Rate 56 L Respiratory Rate 17 Blood P
[2023-11-26] MEDS: ceFAZolin 1 GM/NS 50 ML 1 GM/50 ML BAG IVPB (18:03)
--- NOTE | 2023-11-26 18:46 | P.OP_ITS ---
Procedure Note - Detailed Date of Procedure 11/26/23 Pre-op Diagnosis 1. Large acute disc herniation at L4-5 2. Severe lumbar stenosis with neurogenic claudication 3. Right foot drop Post-op Diagnosis Same Procedure Performed 1. L4 laminectomy, L4-5 microdiskectomy 2. Use of microscope for microsurgical dissection 3. Use of c-arm for fluoroscopy Surgeon Princess Larkin MD [employer] Anesthesia General Description of Procedure The patient was brought to the operating room, and general anesthesia was induced. The patient was placed prone on the Pankaj frame, and all pressure points were padded. Compression devices were placed on the patient's calves. The skin was cleaned with alcohol. The C-arm was brought onto the field to localize the appropriate disc space and assist with incisional planning. The area was prepped and draped in usual sterile fashion. A time out was conducted, and pre- operative antibiotics were administered. Local anesthesia was injected into the planned incision. A skin incision was made with a 10-blade scalpel, and dissection was carried down with the monopolar cautery to open the fascia. The spinous process and laminae were exposed with the bovie. An upgoing curette was placed under the lamina, and the C-arm was brought in to confirm the correct level. A self- retaining retractor was placed. The Leksell was used to remove the spinous process. The high-speed drill was used to thin the laminae to the ligamentum flavum. Additional bone and ligament were removed with the kerrison until the dura was adequately decompressed in the midline. The disc herniation could be palpated through the dura. A 4 penfield was used to separate the dura from the posterior longitudinal ligament. Due to difficulty these structures, more of the lamina superiorly was removed until the lamina of L3 was encountered. I attempted to access the ventral epidural space from a more cranial aspect without success. I again worked from the level of the disc space to separate the dura from the PLL. I was able to expose a portion of the PLL which I opened with a nerve hook. I was slowly able to tease out small disc fragments with the nerve hook and Lopez, and finally, I encountered a very large free disc fragment which was removed in a single fragment. The nerve hook was then used again to confirm no areas of stenosis within the spinal canal. The area was copiously irrigated. A Valsalva was performed with no evidence of CSF leak. The fascia was closed with 0-Vicryl in an interrupted fashion. The soft tissue was again copiously irrigated. The dermis was closed with 2-0 and 3- 0 interrupted vicryl. The skin was closed with 4-0 monocryl then dermabond. The patient was returned supine on the stretcher, extubated, and transferred to PACU without incident. Billing codes: 99770, 72382 Estimated Blood Loss 25 Urine Output 300 Drains No Packing No Pathology None sent Complications No immediate complications Condition Stable Disposition PACU [facility] Billing Surgery - Charge Forward: Surgery Billing
--- NOTE | 2023-11-26 18:55 | WPDNEUROSGPN ---
Progress Note: A&P Assessment and Plan (1) Status post lumbar laminectomy: Code(s): Z98.890 - Other specified postprocedural states Status: Acute Plan -He should work aggressively with PT/OT -He can be up to chair and mobilized as soon as this evening -I reviewed wound care and activity precautions with the patient and his at bedside -He can shower starting on Thursday and get his incision wet -He can start DVT ppx tomorrow evening -I will have my office contact him for follow up with me in 2-3 weeks Subjective Date/time seen: 11/26/23 18:55 Interval history: Seen this evening post-operatively. He is not having any significant pain, including in the leg. He feels he can move his toes better. He has not yet been out of bed. Review of Systems Review of Systems: All systems reviewed & are unremarkable except as noted in HPI and below Exam Narrative: AOx4 Incision c/d/i Moving both legs with good strength Difficulty with dorsiflexion bilaterally but improved strength, 4/5 Sensation intact to light touch Objective Data Vital Signs Vital Signs: Vital Signs - 24 hr 11/25/23 21:13 11/25/23 20:00 11/26/23 05:45 Temperature 98.2 F 97.8 F Pulse Rate 62 51 L Respiratory Rate 18 18 Blood Pressure 152/71 H 160/82 H Pulse Oximetry 100 100 100 Oxygen Delivery Room Air Oxygen Flow Rate 11/26/23 08:20 11/26/23 08:00 11/26/23 12:03 Temperature 98.2 F 97.6 F Pulse Rate 52 L 57 L Respiratory Rate 16 15 Blood Pressure 180/71 H 113/50 L Pulse Oximetry 100 97 Oxygen Delivery Room Air Room Air Simple Face Mask Oxygen Flow Rate 8 11/26/23 12:15 11/26/23 12:30 11/26/23 12:45 Temperature Pulse Rate 56 L 61 60 Respiratory Rate 18 18 18 Blood Pressure 108/51 L 115/66 126/62 Pulse Oximetry 100 100 100 Oxygen Delivery Simple Face Mask Simple Face Mask Room Air Oxygen Flow Rate 8 8 11/26/23 12:58 11/26/23 13:15 11/26/23 13:30 Temperature 97.0 F L 97.6 F Pulse Rate 60 60 57 L Respiratory Rate 14 16 18 Blood Pressure 127/60 126/54 L 124/56 L Pulse Oximetry 99 100 100 Oxygen Delivery Room Air Oxygen Flow Rate 11/26/23 14:00 11/26/23 16:44 Temperature 97.3 F L 97.8 F Pulse Rate 56 L 62 Respiratory Rate 17 17 Blood Pressure 129/53 L 133/61 Pulse Oximetry 100 100 Oxygen Delivery Oxygen Flow Rate Intake/Output Intake/Output: Intake & Output 11/23/23 11/24/23 11/25/23 11/26/23 23:59 23:59 23:59 23:59 Intake Total 240 1060 840 Output Total 600 1965 1750 Balance -580 -904 -962 Meds/Results Medications: Active Medications Generic Name Dose Route Start Last Admin Trade Name Freq PRN Reason Stop Dose Admin Acetaminophen 650 mg 11/24/23 11:10 11/25/23 00:49 Acetaminophen 325 Mg Tablet PO 650 mg Q4H PRN Administration Mild Pain (1-3) or Fever Hydrocodone Bitart/Acetaminophen 1 - 2 tab 11/25/23 13:50 11/25/23 20:26 Hydrocodone/Acetaminophen (*Crx) 5-325 Mg Tablet PO 1 tab Q4H PRN Administration Pain Rated 4-6 Amlodipine Besylate 2.5 mg 11/25/23 09:00 11/26/23 17:43 Amlodipine Besylate 2.5 Mg Tablet PO Not Given DAILY NATALYA Cyclobenzaprine HCl 10 mg 11/26/23 14:00 11/26/23 16:59 Cyclobenzaprine Hcl 10 Mg Tablet PO Not Given Q8HR NATALYA Hydrochlorothiazide 25 mg 11/25/23 09:00 11/26/23 17:43 Hydrochlorothiazide 25 Mg Tablet PO Not Given DAILY NATALYA Hydromorphone HCl 0.5 mg 11/24/23 11:10 Hydromorphone Hcl Inj (*Crx) 1 Mg/Ml Syr IV PUSH Q4H PRN Pain Rated 7-10 Lactated Ringer's 1,000 mls @ 30 mls/hr 11/26/23 08:45 11/26/23 12:03 Lr - Lactated Ringers Iv IV CONT Infused .Q24H NATALYA Infusion Lactated Ringer's 1,000 mls @ 30 mls/hr 11/26/23 08:45 11/26/23 13:00 Lr - Lactated Ringers Iv IV CONT Infused .Q24H NATALYA Infusion Cefazolin Sodium 1 gm in 50 mls @ 100 mls/hr 11/26/23 11:55 11/26/23 18:03 Ancef 1 Gm/Ns 50 Ml IVPB 11/27/23 12:00 100 mls/
[2023-11-26] MEDS: CYCLOBENZAPRINE HCL 10 MG TABLET PO (21:33)
[2023-11-26] MEDS: MELATONIN 5 MG TABLET PO (21:33)
[2023-11-27] MEDS: ceFAZolin 1 GM/NS 50 ML 1 GM/50 ML BAG IVPB ×2 (04:38→12:02)
[2023-11-27 05:49] LABS: Anion Gap 3 mmol/L (4-12); Blood Urea Nitrogen 29 mg/dL (9-20); Calcium 9.2 mg/dL (8.4-10.2); Carbon Dioxide 31 mmol/L (22-30); Chloride 108 mmol/L (98-107); Estimated CRCL calculation 54 ml/min; Estimated Glomerular Filt Rate > 60; Glucose 90 mg/dL (65-110); Potassium 4.1 mmol/L (3.4-5.0); Sodium 142 mmol/L (137-145)
[2023-11-27 05:58] VITALS: BP 156/59; PULSE 53; RESP 16; TEMP 36.6; O2SAT 100
[2023-11-27 06:25] LABS: Thyroid Stimulating Hormone Reflex 0.938 uIU/mL (0.465-4.68)
[2023-11-27 07:03] LABS: Folic Acid 7.9 ng/mL (2.76->20)
[2023-11-27] MEDS: ENOXAPARIN 40 MG/0.4 ML SYRINGE SUB-Q (09:11)
[2023-11-27] MEDS: amLODIPine BESYLATE 2.5 MG TABLET PO (09:12)
[2023-11-27] MEDS: PREGABALIN (*CRX) 50 MG CAPSULE PO ×3 (09:12→16:27)
[2023-11-27] MEDS: lisinopriL 20 MG TABLET PO (09:12)
--- NOTE | 2023-11-27 09:46 | WPDANESPN ---
Anes - Prog Note Post-Op Date/Time: 11/27/23 09:46 Cardiovascular status: normal Respiratory status: normal Airway patency: baseline Mental status: baseline Post-Op hydration status: normal Vital Signs: Last Vital Signs Temp 36.6 C 11/27/23 05:58 Pulse 53 L 11/27/23 05:58 Resp 16 11/27/23 05:58 BP 156/59 H 11/27/23 05:58 Pulse Ox 100 11/27/23 05:58 O2 Del Method Room Air 11/26/23 20:00 O2 Flow Rate 8 11/26/23 12:30 Pain Score (VAS): 09/26 I/O: Intake & Output 11/26/23 11/27/23 11/27/23 23:59 07:59 15:59 Intake Total 640 150 518 Output Total 1250 600 Balance -610 150 -82 Laboratory Tests 11/25/23 05:59 11/27/23 05:20 11/27/23 05:20 Sodium 142 Potassium 4.1 Chloride 108 H Carbon Dioxide 31 H Anion Gap 3 L BUN 29 H Creatinine 1.00 Estim Creat Clear Calc 54 Estimated GFR > 60 Glucose 90 Calcium 9.2 Vitamin B12 342.0 Methylmalonic Acid Pending Folate 7.9 TSH (Reflex) 0.938 Post-procedural complaints: none Patient Feedback: Patient satisfied with anesthetic care.
[2023-11-27] MEDS: LIDOCAINE 5% PATCH 1 PATCH TRANSDERM (10:52)
[2023-11-27] MEDS: CYCLOBENZAPRINE HCL 10 MG TABLET PO ×2 (13:55→21:05)
[2023-11-27 14:47] VITALS: BP 107/49; PULSE 62; RESP 16; TEMP 37; O2SAT 100
--- NOTE | 2023-11-27 14:50 | PM.IMPN ---
Progress Note: A&P Assessment and Plan (1) Closed compression fracture of L5 vertebra: Code(s): S32.050A - Wedge compression fracture of fifth lumbar vertebra, initial encounter for closed fracture Status: Acute Assessment and Plan: Patient presents with back pain. Lumbar spine MRI showing acute/subacute L5 compression fracture, severe lower lumbar spondylosis. Lumbar spine CT showing L5 compression fracture, severe lumbar spondylosis. 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 Dexameth stopped Continue Tylenol, [place] and Dilaudid for pain control PT/OT. Placement being arranged (2) Generalized weakness: Code(s): R53.1 - Weakness Status: Acute Assessment and Plan: Patient started in with a several week history of lower back pain with radiating pain down the right leg into the foot with increasing weakness in both legs right greater than the left after sustaining fall on 11/23/2023. TSH/folate normal. B12 342 so will check MMA. As above. PT/OT ordered. (3) Bradycardia: Code(s): R00.1 - Bradycardia, unspecified Status: Acute Assessment and Plan: HR was in the 40's-50's. EKG showing sinus bradycardia (58), marked LAD and incomplete Rt BBB. Echo December 2022 showing normal LV systolic fxn with EF 65-70% and Grade I diastolic dysfunction and mild valvular disease. TSH normal Monitor. (4) Essential hypertension: Code(s): I10 - Essential (primary) hypertension Status: Acute Assessment and Plan: Patient's blood pressure was reviewed on 11/26 Blood pressure remains well controlled. Continue to hold HCTZ. Continue Norvasc and Lisinopril. Plan DVT prophylaxis - SCDs, Lovenox Code status - full Subjective Date/time seen: 11/27/23 14:50 Interval history: 78yo male with chronic LBP, gout, HTN and prediabetes here for weakness and history of falls. Having more pain in the right knee and foot. Working with therapy. Able to bear weight on the right foot. No n/v. No CP or SOB. Exam Narrative: AF 98.6 107/49 62 16 100% ra Gen - NARD Chest -CTA bilaterally, nml RR CV - RRR S1/S2 Abd - Soft, NT/ND, Positive BS Back - lumbar inscision is clean, dry and intact Ext - No pedal edema. Neuro - Alert and appropriate. Able to wiggle toes both feet. weakness to right dorsiflexion and plantar flexion Psych - Nml mood and affect. Skin - Warm and dry Objective Data Vital Signs Vital Signs: Vital Signs - 24 hr 11/26/23 16:44 11/26/23 20:00 11/26/23 20:00 Temperature 97.8 F 98.2 F Pulse Rate 62 60 Respiratory Rate 17 18 Blood Pressure 133/61 113/52 L Pulse Oximetry 100 100 100 Oxygen Delivery Room Air 11/27/23 05:58 11/27/23 10:46 11/27/23 14:47 Temperature 97.9 F 98.6 F Pulse Rate 53 L 62 Respiratory Rate 16 16 Blood Pressure 156/59 H 107/49 L Pulse Oximetry 100 100 Oxygen Delivery Room Air Intake/Output Intake/Output: Intake & Output 11/24/23 11/25/23 11/26/23 11/27/23 23:59 23:59 23:59 23:59 Intake Total 240 0667 143 3465 Output Total 600 1965 1750 600 Balance -154 -905 -860 468 Meds/Results Medications: Active Medications Generic Name Dose Route Start Last Admin Trade Name Freq PRN Reason Stop Dose Admin Acetaminophen 650 mg 11/24/23 11:10 11/25/23 00:49 Acetaminophen 325 Mg Tablet PO 650 mg Q4H PRN Administration Mild Pain (1-3) or Fever Hydrocodone Bitart/Acetaminophen 1 - 2 tab 11/25/23 13:50 11/25/23 20:26 Hydrocodone/Acetaminoph
[2023-11-27] MEDS: DOCUSATE SODIUM 100 MG CAPSULE PO ×2 (16:27→21:05)
[2023-11-27] MEDS: OPTI-GEN TAB 2 TABLET PO (16:27)
[2023-11-27 20:00] VITALS: PULSE 60; RESP 16; O2SAT 99
[2023-11-27 20:55] VITALS: BP 115/51; PULSE 60; RESP 16; TEMP 37; O2SAT 99
[2023-11-28] MEDS: CYCLOBENZAPRINE HCL 10 MG TABLET PO (05:02)
[2023-11-28 05:22] VITALS: BP 137/60; PULSE 57; RESP 18; TEMP 36.5; O2SAT 99
[2023-11-28 08:00] VITALS: PULSE 66; RESP 18; O2SAT 100
[2023-11-28] MEDS: OPTI-GEN TAB 2 TABLET PO ×2 (08:17→16:58)
[2023-11-28] MEDS: lisinopriL 20 MG TABLET PO (08:17)
[2023-11-28] MEDS: PREGABALIN (*CRX) 50 MG CAPSULE PO ×3 (08:17→16:58)
[2023-11-28] MEDS: DOCUSATE SODIUM 100 MG CAPSULE PO ×2 (08:17→20:49)
[2023-11-28] MEDS: amLODIPine BESYLATE 2.5 MG TABLET PO (08:17)
[2023-11-28] MEDS: ENOXAPARIN 40 MG/0.4 ML SYRINGE SUB-Q (08:19)
[2023-11-28] MEDS: LIDOCAINE 5% PATCH 1 PATCH TRANSDERM (08:19)
--- NOTE | 2023-11-28 09:33 | PM.IMPN ---
Progress Note: A&P Assessment and Plan (1) Closed compression fracture of L5 vertebra: Code(s): S32.050A - Wedge compression fracture of fifth lumbar vertebra, initial encounter for closed fracture Status: Acute Assessment and Plan: Patient presents with back pain. Lumbar spine MRI showing acute/subacute L5 compression fracture, severe lower lumbar spondylosis. Lumbar spine CT showing L5 compression fracture, severe lumbar spondylosis. 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 Dexameth stopped He has available Tylenol, [place] and Dilaudid for pain control Will change Flexeril to prn and wean down on narcotics PT/OT. Placement being arranged (2) Generalized weakness: Code(s): R53.1 - Weakness Status: Acute Assessment and Plan: Patient started with a several week history of lower back pain with radiating pain down the right leg into the foot with increasing weakness in both legs (R>L) after sustaining fall on 11/23/23. Related to above TSH/folate normal. B12 342 so will check MMA. As above. PT/OT ordered. (3) Bradycardia: Code(s): R00.1 - Bradycardia, unspecified Status: Acute Assessment and Plan: HR was in the 40's-50's. EKG showing sinus bradycardia (58), marked LAD and incomplete Rt BBB. Echo December 2022 showing normal LV systolic fxn with EF 65-70% and Grade I diastolic dysfunction and mild valvular disease. TSH normal HR better. Continue to monitor. (4) Essential hypertension: Code(s): I10 - Essential (primary) hypertension Status: Acute Assessment and Plan: Patient's blood pressure was reviewed on 11/27 Blood pressure remains well controlled. Continue to hold HCTZ. Continue Norvasc and Lisinopril. Plan DVT prophylaxis - SCDs, Lovenox Code status - full Subjective Date/time seen: 11/28/23 09:33 Interval history: 78yo male with chronic LBP, gout, HTN and prediabetes here for weakness and history of falls. Slept off and on last night. Feels tired. No CP or SOB. Oriented but seems forgetful; does not recall working with PT yesterday. Exam Narrative: AF 97.7 137/60 57 18 99% ra Gen - NARD Chest -CTA bilaterally, nml RR CV - RRR S1/S2 Abd - Soft, NT/ND, Positive BS Ext - No pedal edema. Neuro - Awake, oriented (except did not know the name of the Hosp). No change in the LE exam. Psych - Nml mood and affect. Skin - Warm and dry Objective Data Vital Signs Vital Signs: Vital Signs - 24 hr 11/27/23 10:46 11/27/23 14:47 11/27/23 20:55 Temperature 98.6 F 98.6 F Pulse Rate 62 60 Respiratory Rate 16 16 Blood Pressure 107/49 L 115/51 L Pulse Oximetry 100 99 Oxygen Delivery Room Air 11/27/23 20:00 11/28/23 05:22 Temperature 97.7 F Pulse Rate 60 57 L Respiratory Rate 16 18 Blood Pressure 137/60 Pulse Oximetry 99 99 Oxygen Delivery Room Air Intake/Output Intake/Output: Intake & Output 11/25/23 11/26/23 11/27/23 11/28/23 23:59 23:59 23:59 23:59 Intake Total 1479 817 3165 578 Output Total 1965 1750 1150 600 [facility] -[phone] -22 Meds/Results Medications: Active Medications Generic Name Dose Route Start Last Admin Trade Name Freq PRN Reason Stop Dose Admin Acetaminophen 650 mg 11/24/23 11:10 11/25/23 00:49 Acetaminophen 325 Mg Tablet PO 650 mg Q4H PRN Administration Mild Pain (1-3) or Fever Hydrocodone Bitart/Acetaminophen 1 - 2 tab 11/25/23 13:50 11/25/23 20:26 Hydrocodone/Acetaminophen (*Crx) 5-325 Mg Tablet PO
[2023-11-28 14:00] VITALS: BP 107/53; PULSE 66; RESP 18; TEMP 37.1; O2SAT 100
[2023-11-28 20:40] VITALS: BP 121/53; PULSE 58; RESP 12; TEMP 37.2; O2SAT 98
[2023-11-29 00:13] VITALS: BP 147/63; PULSE 65; RESP 12; TEMP 37; O2SAT 100
[2023-11-29 06:00] VITALS: BP 147/59; PULSE 61; RESP 16; TEMP 37.1; O2SAT 100
[2023-11-29 06:01] LABS: Basophils Percent Auto 0.3 % (0.2-1.2); Eosinophils Absolute Auto 0.1 K/mm3 (0-0.3); Eosinophils Percent Auto 1.4 % (0-4.4); Hematocrit 35.1 % (42.0-52.0); Hemoglobin 10.5 g/dL (14.0-18.0); Immature Granulocyte Absolute 0.03 K/mm3 (0.00-0.031); Immature Granulocyte Percent A 0.5 % (0-0.5); Lymphocytes Absolute Auto 1.13 K/mm3 (0.9-3.2); Mean Corpuscular HGB Conc 29.9 g/dl (32-36); Mean Corpuscular Hemoglobin 26.2 pg (26-34); Mean Corpuscular Volume 87.5 fl (80-100); Mean Platelet Volume 10.3 fl (7.4-10.4); Monocytes Absolute Auto 0.5 K/mm3 (0.1-0.6); Monocytes Percent Auto 8.1 % (2.6-8.5); Neutrophils Absolute Auto 4.9 K/mm3 (1.3-6.7); Neutrophils Percent Auto 72.7 % (45.5-73.1); Platelet Count Result 254 k/mm3 (150-375); Red Blood Count 4.01 M/mm3 (4.6-6.20); Red Cell Distribution Width 16.7 % (11.5-14.5); White Blood Count 6.7 K/mm3 (4.5-10.0)
[2023-11-29 06:17] LABS: Albumin Level 3.3 g/dL (3.5-5.1); Anion Gap 2 mmol/L (4-12); Blood Urea Nitrogen 29 mg/dL (9-20); Calcium 8.9 mg/dL (8.4-10.2); Carbon Dioxide 28 mmol/L (22-30); Chloride 108 mmol/L (98-107); Estimated CRCL calculation 80 ml/min; Estimated Glomerular Filt Rate > 60; Glucose 92 mg/dL (65-110); Magnesium 2.2 mg/dL (1.6-2.3); Phosphorus 3.3 mg/dL (2.5-4.5); Potassium 4.3 mmol/L (3.4-5.0); Sodium 138 mmol/L (137-145)
[2023-11-29] MEDS: lisinopriL 20 MG TABLET PO (08:27)
[2023-11-29] MEDS: DOCUSATE SODIUM 100 MG CAPSULE PO ×2 (08:27→20:46)
[2023-11-29] MEDS: OPTI-GEN TAB 2 TABLET PO ×2 (08:27→16:33)
[2023-11-29] MEDS: amLODIPine BESYLATE 2.5 MG TABLET PO (08:27)
[2023-11-29] MEDS: PREGABALIN (*CRX) 50 MG CAPSULE PO ×3 (08:27→16:33)
[2023-11-29] MEDS: LIDOCAINE 5% PATCH 1 PATCH TRANSDERM (08:27)
[2023-11-29] MEDS: ENOXAPARIN 40 MG/0.4 ML SYRINGE SUB-Q (08:30)
--- NOTE | 2023-11-29 10:58 | PM.IMPN ---
Progress Note: A&P Assessment and Plan (1) Closed compression fracture of L5 vertebra: Code(s): S32.050A - Wedge compression fracture of fifth lumbar vertebra, initial encounter for closed fracture Status: Acute Assessment and Plan: Patient presents with back pain. Lumbar spine MRI showing acute/subacute L5 compression fracture, severe lower lumbar spondylosis. Lumbar spine CT showing L5 compression fracture, severe lumbar spondylosis. 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 Dexameth stopped. Flexeril prn He has available Tylenol, [place] for pain control Continue the same PT/OT. Placement being arranged (2) Generalized weakness: Code(s): R53.1 - Weakness Status: Acute Assessment and Plan: Patient started with a several week history of lower back pain with radiating pain down the right leg into the foot with increasing weakness in both legs (R>L) after sustaining fall on 11/23/23. Related to above TSH/folate normal. B12 342 so MMA checked As above. PT/OT ordered. (3) Bradycardia: Code(s): R00.1 - Bradycardia, unspecified Status: Acute Assessment and Plan: HR was in the 40's-50's. EKG showing sinus bradycardia (58), marked LAD and incomplete Rt BBB. Echo December 2022 showing normal LV systolic fxn with EF 65-70% and Grade I diastolic dysfunction and mild valvular disease. TSH normal HR better. Continue to monitor. (4) Essential hypertension: Code(s): I10 - Essential (primary) hypertension Status: Acute Assessment and Plan: Patient's blood pressure was reviewed on 11/28 Blood pressure remains well controlled. Continue to hold HCTZ. Continue Norvasc and Lisinopril. Plan DVT prophylaxis - SCDs, Lovenox Code status - full Subjective Date/time seen: 11/29/23 10:58 Interval history: 78yo male with chronic LBP, gout, HTN and prediabetes here for weakness and history of falls. Up to the chair today. Feels better. Slept better last night. No CP or SOB. No n/v Exam Narrative: AF 98.7 147/59 61 16 100% ra Gen - NARD sitting up in the chair Chest -CTA bilaterally, nml RR CV - RRR S1/S2 Abd - Soft, NT/ND, Positive BS Ext - No pedal edema. Neuro - Awake and appropriate. Some dorsiflexion and plantar flexion to the right foot Psych - Nml mood and affect. Skin - Warm and dry Objective Data Vital Signs Vital Signs: Vital Signs - 24 hr 11/28/23 14:00 11/28/23 14:39 11/28/23 20:40 Temperature 98.8 F 98.9 F Pulse Rate 66 58 L Respiratory Rate 18 12 Blood Pressure 107/53 L 121/53 L Pulse Oximetry 100 98 Oxygen Delivery Room Air 11/29/23 00:13 11/29/23 06:00 11/29/23 08:00 Temperature 98.6 F 98.7 F Pulse Rate 65 61 Respiratory Rate 12 16 Blood Pressure 147/63 H 147/59 H Pulse Oximetry 100 100 Oxygen Delivery Room Air Intake/Output Intake/Output: Intake & Output 11/26/23 11/27/23 11/28/23 11/29/23 23:59 23:59 23:59 23:59 Intake Total 890 1986 1778 828 Output Total 1750 1150 800 900 Balance -860 836 978 -72 Meds/Results Medications: Active Medications Generic Name Dose Route Start Last Admin Trade Name Freq PRN Reason Stop Dose Admin Acetaminophen 650 mg 11/28/23 09:38 Acetaminophen 325 Mg Tablet PO Q4H PRN Mild Pain (1-3) Or Fever Hydrocodone Bitart/Acetaminophen 1 - 2 tab 11/28/23 09:38 Hydrocodone/Acetaminophen (*Crx) 5-325 Mg Tablet PO Q4H PRN Pain Rated 4 or Greater Amlodipine Besylate 2.5 mg 11/25/23 09:00
[2023-11-29 14:00] VITALS: BP 138/62; PULSE 64; RESP 17; TEMP 37.1; O2SAT 99
[2023-11-29 20:10] VITALS: BP 102/50; PULSE 73; RESP 18; TEMP 36.6; O2SAT 99
[2023-11-29] MEDS: HYDROcodone/acetaminophen (*CRX) 5-325 MG TABLET PO (23:06)
[2023-11-30 05:28] VITALS: BP 143/66; PULSE 64; RESP 17; TEMP 36.4; O2SAT 99
[2023-11-30] MEDS: lisinopriL 20 MG TABLET PO (08:47)
[2023-11-30] MEDS: PREGABALIN (*CRX) 50 MG CAPSULE PO ×2 (08:47→13:17)
[2023-11-30] MEDS: amLODIPine BESYLATE 2.5 MG TABLET PO (08:47)
[2023-11-30] MEDS: DOCUSATE SODIUM 100 MG CAPSULE PO (08:47)
[2023-11-30] MEDS: OPTI-GEN TAB 2 TABLET PO (08:47)
[2023-11-30] MEDS: ENOXAPARIN 40 MG/0.4 ML SYRINGE SUB-Q (08:50)
[2023-11-30] MEDS: LIDOCAINE 5% PATCH 1 PATCH TRANSDERM (08:50)
--- NOTE | 2023-11-30 13:41 | PM.DS ---
DS: Admitting Diagnosis Discharge Date 11/30/23 Admitting Diagnosis Weakness and falls. DS: Discharge Diagnosis Discharge Diagnosis (1) Closed compression fracture of L5 vertebra: Code(s): S32.050A - Wedge compression fracture of fifth lumbar vertebra, initial encounter for closed fracture Status: Acute (2) Generalized weakness: Code(s): R53.1 - Weakness Status: Acute (3) Bradycardia: Code(s): R00.1 - Bradycardia, unspecified Status: Acute (4) Essential hypertension: Code(s): I10 - Essential (primary) hypertension Status: Acute DS: Summary Hospital Course Reason for hospitalization: 78yo male with chronic LBP, gout, HTN and prediabetes here for weakness and history of falls.?Please see H&P for details. Hospital Course: Patient presents with back pain. Lumbar spine MRI showing acute/subacute L5 compression fracture, severe lower lumbar spondylosis. Lumbar spine CT showing L5 compression fracture, severe lumbar spondylosis. 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 Patient was started on dexamethasone. Neurosurgery was consulted and patient taken to OR 11/25 for L4-5 laminectomy, diskectomy. He tolerated the procedure well. Currently on Lidocaine patch and Lyrica. Dexameth stopped. Flexeril prn. Pain controlled. Patient started with a several week history of lower back pain with radiating pain down the right leg into the foot with increasing weakness in both legs (R>L) after sustaining fall on 11/23/23. TSH/folate normal. B12 342 so? MMA checked. HR was in the 40's-50's. EKG showing sinus bradycardia (58), marked LAD and incomplete Rt BBB. Echo December 2022 showing normal LV systolic fxn with EF 65-70% and Grade I diastolic dysfunction and mild valvular disease. HR improved. He worked with PT/OT. Placement was arranged. He was able to be discharged on 11/30/23. Status at Discharge Cognitive/behavioral status at discharge: stable Time Spent with Patient Time attestation: Total time spent providing and/or coordinating discharge services: 32 minutes Time spent: Greater than 30 minutes Exam Narrative: AF 97.6 143/66 64 17 99% ra Gen - NARD sitting up in the chair Chest -CTA bilaterally, nml RR CV - RRR S1/S2 with 2/6 murmur LSB Abd - Soft, NT/ND, Positive BS Back - vertical dried eschar lumbar region Ext - No pedal edema. Neuro - Awake and appropriate. hip flexors 5-/5 Psych - Nml mood and affect. Skin - Warm and dry Discharge Plan Discharge Attending physician on discharge: Jefferson Huggins Consulting providers: Modesto Olvera; Robson Cole Discharging Clinician: Jefferson Huggins Anticipated Discharge Date/Time: 11/30/23 13:50 Patient Disposition: SNF Activity: other - see discharge instructions Diet: regular Discharge Instructions: Discharge Instructions Procedure: Lumbar microdiskectomy Your doctor has partially removed one or more discs from your back (lumbar spine), to remove pressure from the nerve roots. Here are some instructions to follow upon discharge from the hospital to help in your recovery. Your doctor has removed the disc fragments which were compressing the nerves, but usually does not remove the entire disc. If you do not let your back heal properly from the surgery, you can increase the chance of a recurrent disc herniation and return of your symptoms. Wound Care: You may shower and get your incision wet starting on post-operative day 2 (Thursday, November 27). You may use soap and water to clean your incision. Lightly dab the incision dry. Do not apply any ointments, creams, or lotions to the incision. Do not take baths or sit in a hot tub or pool until approv
[2023-11-30 14:00] VITALS: BP 102/53; PULSE 64; RESP 16; TEMP 37.4; O2SAT 100
[2023-11-30 16:31] LABS: SARS-CoV-2 RNA PCR Negative (Negative)
[2023-12-02 09:49] LABS: Methylmalonic Acid 192 nmol/L (87-318)
--- NOTE | 2023-12-07 13:28 | PC.NURSE ---
MMA is WNL at 192
== END 2023-11-30 16:50 | DRG 519 ==
LOC: ANHED 11:14 → ANH3MEDSUR 11:54
PROVIDERS: Emergency Medicine; Neurological Surgery; Physician Assistant; Admitting Provider Internal Medicine; Emergency Provider Physician Assistant; PCP Family Medicine; Visit Provider Internal Medicine
PROC: 0QB00ZX Excision of Lumbar Vertebra, Open Approach, Diagnostic (ICD-10-PCS; CPT 63017; principal; 2023-11-26 09:30)
DX: M48.062 Spinal stenosis, lumbar region with neurogenic claudication (principal); S32.050A Wedge compression fracture of fifth lumbar vertebra, initial encounter for closed fracture; W19.XXXA Unspecified fall, initial encounter; M47.26 Other spondylosis with radiculopathy, lumbar region; M51.16 Intervertebral disc disorders with radiculopathy, lumbar region; M21.371 Foot drop, right foot; R00.1 Bradycardia, unspecified; I10 Essential (primary) hypertension; I35.0 Nonrheumatic aortic (valve) stenosis; M1A.0710 Idiopathic chronic gout, right ankle and foot, without tophus (tophi); E78.5 Hyperlipidemia, unspecified; Z87.891 Personal history of nicotine dependence
CPT/HCPCS: 36415; 71046; 72131; 72148; 72192; 73502; 73562; 80048; 80053; 80069; 81001; 82607; 82746; 83735; 83921; 84443; 85025; 85027; 85610; 85730; 86140; 87635; 93005; 96374; 97110; 97116; 97161; 97165; 97530; 97535; 99199; 99285; A9270; G0378; J0690; J1100; J1170; J1650; J2371; J2405; J2704; J3010; J7120; J8540

== ENCOUNTER 2024-03-02 11:03 | Outpatient (CLI) | payer MEDICARE, SELFPAY ==
--- NOTE | ~2024-03-02 | XR_ITS ---
3 VIEWS LUMBAR SPINE Ordering provider: Princess Larkin MD History: . Z98.890 - Other specified postprocedural states . Comparison: None. FINDINGS: VERTEBRAL BODIES:Status post laminectomy in L4. Mild anterolisthesis at the level of L4-L5. No visible fracture or subluxation. Degenerative changes of the spine. DISK SPACES: Narrowing of the disc L3-L4 and L4-L5. Multilevel facet joint disease. Bony spinal canal stenosis at the level of L5 and S1 is not excluded. SOFT TISSUES: Aortic calcifications. Calcific area projected over the right kidney which may be a sto ne or an artifact. Left sacroiliitis. IMPRESSION: No acute osseous abnormality lumbar spine. Reviewed, dictated and finalized at location A.
== END 2024-03-02 11:04 | disposition home or self-care (01) ==
PROVIDERS: PCP Family Medicine; Visit Provider Neurological Surgery
DX: Z98.890 Other specified postprocedural states (principal)
CPT/HCPCS: 72100

== ENCOUNTER 2025-02-14 11:14 | Outpatient (CLI) | payer MEDICARE, SELFPAY ==
--- NOTE | ~2025-02-14 | US_ITS ---
EXAM: Focused ultrasound examination of the left lower quadrant of the abdomen HISTORY: R19.04 - Left lower quadrant abdominal swelling, mass and... TECHNIQUE: Sonographic evaluation of the left lower quadrant of the abdomen was performed assessing g rayscale appearance and color Doppler flow. COMPARISON: None. FINDINGS: Sonographic evaluation of the left lower quadrant of the abdomen demonstrates air distended bowel wit h peristalsis within the area of clinical concern. Otherwise benign fibrofatty and fibromuscular elements without a cystic or solid lesion of concern ar e detected. IMPRESSION: Within the area of clinical concern in the left lower quadrant of the abdomen is a area of distended bowel with peristalsis. Cross-sectional imaging (noncontrast enhanced CT examination of the abdomen and pelvis) is recommende d for further evaluation, and if clinical concern persists. Reviewed, dictated and finalized at location A. IMPRESSION: Within the area of clinical concern in the left lower quadrant of the abdomen i s a area of distended bowel with peristalsis. Cross-sectional imaging (noncontrast enhanced CT examination of the abdomen and pelvis) is recommended for further evaluation, and if clinical concern persist s.
== END 2025-02-14 11:15 | disposition home or self-care (01) ==
PROVIDERS: PCP Family Medicine; Visit Provider Student in an Organized Health Care Education/Training Program
DX: R19.04 Left lower quadrant abdominal swelling, mass and lump (principal); R19.2 Visible peristalsis
CPT/HCPCS: 76705